=== PATIENT | female | born 1965 | race Caucasian/White ===

== ENCOUNTER 2017-11-09 15:58 | Observation (INO) | payer OTHER ==
--- NOTE | 2017-11-09 16:42 | RAD REPORT ---
EXAM DESCRIPTION: RAD - Elbow Right 3 View - 11/09/2017 4:36 pm CLINICAL HISTORY: Right elbow pain status post fall FINDINGS: No fracture or dislocation is seen
--- NOTE | 2017-11-09 16:44 | RAD REPORT ---
EXAM DESCRIPTION: Steven Single View11/09/2017 4:38 pm CLINICAL HISTORY: Chest pain COMPARISON: 2014 FINDINGS: The lungs appear clear of acute infiltrate. The heart is normal size IMPRESSION: No acute abnormalities displayed
--- NOTE | 2017-11-09 16:45 | RAD REPORT ---
EXAM DESCRIPTION: RAD - Ankle Right 3 View - 11/09/2017 4:36 pm CLINICAL HISTORY: Right ankle pain status post fall FINDINGS: No fracture or dislocation is seen.
[2017-11-09 16:48] LABS: Absolute Lymphocytes (CBC) 1.5 K/uL (0.7-4.9); Absolute Monocytes 0.6 K/uL (0.1-1.3); Absolute Neutrophil 2.9 K/uL (1.8-8.0); Basophils % 0.6 % (0-1.3); Eosinophils % 2.5 % (0-4.4); Hematocrit 34.2 % (36.0-45.0); Lymphocytes % 28.6 % (15.3-44.8); MPV 8.2 fL (7.6-11.3); RBC Red Blood Cell Count 3.64 M/uL (3.86-4.86)
--- NOTE | 2017-11-09 16:48 | RAD REPORT ---
EXAM DESCRIPTION: RAD - Foot Right 3 View - 11/09/2017 4:36 pm CLINICAL HISTORY: Right foot pain status post injury FINDINGS: No fracture or dislocation is seen
[2017-11-09 16:54] LABS: Protime INR 3.3
[2017-11-09 17:11] LABS: ALT/SGPT 20 U/L (12-78); AST/SGOT 14 U/L (15-37); Albumin 3.7 g/dL (3.4-5.0); Alkaline Phosphatase 49 U/L (45-117); BUN Blood Urea Nitrogen 14 mg/dL (7-18); Bicarbonate 29 mmol/L (21-32); Bilirubin Direct 0.1 mg/dL (0-0.2); Bilirubin Total 0.2 mg/dL (0.2-1.0); CKMB Creatine Kinase MB < 1.0 ng/mL (0.3-3.6); Creatine Phosphokinase 92 U/L (26-192); Glucose Level 113 mg/dL (74-106); NT PRO-BNP 199 pg/mL (<125); Potassium 3.8 mmol/L (3.5-5.1); Protein, Total 7.3 g/dL (6.4-8.2); Sodium Level 143 mmol/L (136-145); Troponin (Emerg Dept Use Only) < 0.02 ng/mL (0.0-0.045)
--- NOTE | 2017-11-09 17:12 | RAD REPORT ---
EXAM DESCRIPTION: CT - Head C Spine Mpr Wo Con - 11/09/2017 4:54 pm CLINICAL HISTORY: Head and neck injury status post fall. Head and neck pain syncope COMPARISON: None. TECHNIQUE: Computed axial tomography of the head and cervical spine was obtained. Sagittal and coronal reconstruction was performed. All CT scans are performed using dose optimization technique as appropriate and may include automated exposure control or mA/KV adjustment according to patient size. FINDINGS: An intracranial bleed is not seen. The ventricles are normal in caliber. An extra-axial fl uid collection is not noted.Fluid within the visualized sinuses and mastoids is not seen A cervical fracture is not visualized. No dislocation is noted. 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 A cervical fracture is not visualized. If the patient continues to have symptoms to suggest intracra nial /spinal cord pathology then MRI would be recommended
--- NOTE | 2017-11-09 18:07 | ER ---
Nurse's Notes [facility] Name: Karen Red Age: 52 yrs Sex: Female : 1965 Arrival Date: 11/09/2017 Time: 16:01 Bed 30 Private MD: Emile Pan V Diagnosis: Syncope and collapse;Contusion of right elbow;Pain in right foot Presentation: 11/09 16:15 Presenting complaint: Patient states: " I woke up in the middle of the night feeling ph like I was going to throw up and went to the restroom. I must of passed out because I woke up on the floor." C/O pain to R elbow and foot, denies head pain but is unsure if she hit her head, reports that she takes Warfarin and aspirin. Transition of care: patient was not received from another setting of care. Onset of symptoms was November 09, 2017. Risk Assessment: Do you want to hurt yourself or someone else? Patient reports no desire to harm self or others. Initial Sepsis Screen: Does the patient meet any 2 criteria? No. Patient's initial sepsis screen is negative. Does the patient have a suspected source of infection? No. Patient's initial sepsis screen is negative. Care prior to arrival: None. 16:15 Method Of Arrival: Ambulatory ph 16:15 Acuity: NINO 3 ph Triage Assessment: 16:23 Neuro: Reports a syncopal episode. 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 - Social history:: Smoking status: Patient/guardian denies using tobacco. - Ebola Screening: : Patient negative for fever greater than or equal to 101.5 degrees Fahrenheit, and additional compatible Ebola Virus Disease symptoms Patient denies exposure to infectious person Patient denies travel to an Ebola-affected area in the 21 days before illness onset. Screenin:23 Abuse screen: Denies threats or abuse. Denies injuries from another. Nutritional rv screening: No deficits noted. Tuberculosis screening: No symptoms or risk factors identified. Fall Risk None identified. Assessment: 16:21 General: Appears in no apparent distress. comfortable, Behavior is calm, cooperative. rv Pain: Complains of pain in right ELBOW. Neuro: Level of Consciousness is awake, alert, obeys commands, Oriented to person, place, time, situation. Cardiovascular: Capillary refill < 3 seconds Rhythm is regular. Respiratory: Airway is patent. GI: No signs and/or symptoms were reported involving the gastrointestinal system. : No signs and/or symptoms were reported regarding the genitourinary system. EENT: No signs and/or symptoms were reported regarding the EENT system. Derm: Skin is intact. Musculoskeletal: Reports pain in RIGHT ELBOW, RIGHT FOOT. 16:52 Reassessment: Patient appears in no apparent distress at this time. Patient and/or rv family updated on plan of care and expected duration. Pain level reassessed. Patient is alert, oriented x 3, equal unlabored respirations, skin warm/dry/pink. 17:56 Reassessment: Patient appears in no apparent distress at this time. Patient and/or rv family updated on plan of care and expected duration. Pain level reassessed. Patient is alert, oriented x 3, equal unlabored respirations, skin warm/dry/pink. 18:54 Reassessment: Patient appears in no apparent distress at this time. Patient and/or rv family updated on plan of care and expected duration. Pain level reassessed. Patient is alert, oriented x 3, equal unlabored respirations, skin warm/dry/pink. Vital Signs: 16:18 BP 111 / 61; Pulse 76; Resp 18; Temp 97.8; Pulse Ox 100% on R/A; Weight 52.16 kg; ph Height 5 ft. 6 in. (167.64 cm); Pain 6/10; 16:24 BP 111 / 61; Pulse 80; Pulse Ox 100% on R/A; rv 16:45 BP 97 / 65; Pulse 65; Pulse Ox 100% on R/A; rv 17:08 BP 103 / 60 LA Supine (auto/reg); Pulse 63; Pulse Ox 100% on R/A; jp3 17:10 BP 107 / 65 LA Sitting (auto/reg); Pulse 90; Pulse Ox 95% on R/A; jp3 17:10 BP 101 / 68 LA Standing (auto/reg); Pulse 74; Pulse Ox 100% on R/A; jp3 17:55 BP 109 / 59; Pulse 64; Pulse Ox 100% on R/A; rv 18:53 BP 107 / 69; Pulse 62; Pulse Ox 99% on R/A; rv 19:32 BP 103 / 74; Pulse 72; Pulse Ox 100% on R/A; rv 16:18 Body Mass Index 18.56 (52.16 kg, 167.64 cm) ph ED Course: 16:01 Patient arrived in ED. sb2 16:01 Emile Pan MD is Private Physician. sb2 16:18 Triage completed. ph 16:19 Lucila Gaming FNP-C is PHCP. kb 16:19 Dylon Booth MD is Attending Physician. kb 16:19 PHCP role handed off by Lucila Gaming FNP-C cp 16:19 Jordan Farr PA is PHCP. cp 16:19 Arm band placed on. ph 16:24 Patient has correct armband on for positive identification. Bed in low position. Call rv light in reach. Side rails up X 1. Pulse ox on. NIBP on. 16:26 Inserted saline lock: 20 gauge in right antecubital area, using aseptic technique. rv Blood collected. 16:36 XRAY Chest (1 view) In Process Unspecified. EDMS 16:36 XRAY Elbow RIGHT 3 view In Process Unspecified. EDMS 16:36 XRAY Ankle RIGHT 3 view In Process Unspecified. EDMS 16:36 XRAY Foot RIGHT 3 View In Process Unspecified. EDMS 16:36 X-ray completed. Portable x-ray completed in exam room. Patient tolerated procedure bb2 well. 16:55 CT Head C Spine In Process Unspecified. EDMS 18:05 3D boot applied to right foot. jp3 18:06 Emile Pan MD is Hospitalizing Provider. cp 19:33 No provider procedures requiring assistance completed. Patient admitted, IV remains in rv place. intact. Administered Medications: 18:14 Drug: NS 0.9% 1000 ml Route: IV; Rate: 1 bolus; Site: left antecubital; rv 18:54 Follow up: IV Status: Completed infusion rv 18:30 Drug: HYDROcodone-acetaminophen 5 mg-325 mg 1 tabs Route: PO; rv 18:54 Follow up: Response: No adverse reaction rv Outcome: 18:07 Decision to Hospitalize by Provider. cp 19:33 Admitted to Med/surg accompanied by tech, via wheelchair, room 205, with chart, Report rv called to NARESH 19:33 Condition: good 19:33 Instructed on the need for admit. 19:34 Patient left the ED. rv Signatures: Dispatcher [employer] EDMS Lucila Gaming, JUKEBOX ROUTEMAN-C JUKEBOX ROUTEMAN-Nicole Rodriguez, RN RN ph Jordan Farr, SUZANNE PA cp Amena Jones bb2 Anabelle Samuels sb2 Joshua James RN RN rv Jason Clayton jp3 Corrections: (The following items were deleted from the chart) 16:18 16:15 Acuity: NINO 4 ph ph
--- NOTE | 2017-11-09 18:08 | EDPHYS ---
Physician Documentation [facility] Name: Karen Red Age: 52 yrs Sex: Female : 1965 Arrival Date: 11/09/2017 Time: 16:01 Bed 30 Private MD: Emile Pan V ED Physician Dylon Booth HPI: 11/09 16:27 This 52 yrs old Female presents to ER via Ambulatory with complaints of cp Syncope, Fall Injury. 16:27 The patient has experienced syncope, collapsed. cp 16:27 Onset: The symptoms/episode began/occurred this morning. cp 16:27 Associated injury: Right lower extremity: dorsum of right foot, pain, swelling, cp tenderness, Right upper extremity: right elbow, contusion, swelling, tenderness. 16:27 Duration: This was a single episode, that lasted an unknown period of time. Current cp symptoms: Currently, the patient is not experiencing any symptoms, no decreased level of consciousness, no headache. 16:30 Patient reports waking up to use restroom and while walking to bathroom she believes cp she passed out for unknown length of time. Patient reports waking up on floor near bathroom. 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 - Social history:: Smoking status: Patient/guardian denies using tobacco. - Ebola Screening: : Patient negative for fever greater than or equal to 101.5 degrees Fahrenheit, and additional compatible Ebola Virus Disease symptoms Patient denies exposure to infectious person Patient denies travel to an Ebola-affected area in the 21 days before illness onset. ROS: 16:30 Constitutional: Negative for body aches, chills, fever, poor PO intake. cp 16:30 Eyes: Negative for injury, pain, redness, and discharge. cp 16:30 ENT: Negative for drainage from ear(s), ear pain, sore throat, difficulty swallowing, difficulty handling secretions. 16:30 Neck: Negative for pain with movement, pain at rest, stiffness, tenderness. 16:30 Cardiovascular: Negative for chest pain, edema, palpitations. 16:30 Respiratory: Negative for cough, shortness of breath, wheezing. 16:30 Abdomen/GI: Negative for abdominal pain, vomiting, diarrhea, constipation, black/tarry stool, rectal bleeding. 16:30 Back: Negative for pain at rest, pain with movement. 16:30 MS/extremity: Positive for pain, swelling, tenderness, of the right foot and right elbow, Negative for paresthesias. 16:30 Skin: Negative for cellulitis, diaphoresis, rash. 16:30 Neuro: Positive for syncope, Negative for altered mental status, dizziness, headache, numbness, weakness. Exam: 16:35 Constitutional: The patient appears in no acute distress, alert, awake, cp non-diaphoretic, non-toxic, well developed, well nourished. 16:35 Head/Face: Normocephalic, atraumatic. Eyes: Pupils equal round and reactive to light, cp extra-ocular motions intact. Lids and lashes normal. Conjunctiva and sclera are non-icteric and not injected. Cornea within normal limits. Periorbital areas with no swelling, redness, or edema. ENT: Nares patent. No nasal discharge, no septal abnormalities noted. Tympanic membranes are normal and external auditory canals are clear. Oropharynx with no redness, swelling, or masses, exudates, or evidence of obstruction, uvula midline. Mucous membranes moist. Neck: Trachea midline, no thyromegaly or masses palpated, and no cervical lymphadenopathy. Supple, full range of motion without nuchal rigidity, or vertebral point tenderness. No Meningismus. Chest/axilla: Normal chest wall appearance and motion. Nontender with no deformity. No lesions are appreciated. 16:35 Cardiovascular: Rate: normal, Rhythm: regular, Pulses: Pulses are 2+ in right radial artery and left radial artery. Edema: is not appreciated, JVD: is not appreciated. 16:35 Respiratory: the patient does not display signs of respiratory distress, Respirations: normal, no use of accessory muscles, no retractions, no splinting, no tachypnea, labored breathing, is not present, Breath sounds: are clear throughout, no decreased breath sounds, no stridor, no wheezing. 16:35 Abdomen/GI: Inspection: abdomen appears normal, Bowel sounds: active, all quadrants, Palpation: abdomen is soft and non-tender, in all quadrants, rebound tenderness, is not appreciated, voluntary guarding, is not appreciated, involuntary guarding, is not appreciated. 16:35 Back: pain, is absent, ROM is normal. 16:35 Musculoskeletal/extremity: Extremities: grossly normal except: noted in the right elbow: contusion, ecchymosis, swelling, tenderness, There is no evidence of deformity, noted in the right foot: pain, swelling, tenderness, no evidence of deformity. 16:35 Skin: cellulitis, is not appreciated, no rash present. 16:35 Neuro: Orientation: to person, place \T\ time. Mentation: lucid, able to follow commands, Cerebellar function: Romberg testing is negative, normal finger to nose testing, Motor: moves all fours, strength is normal, Sensation: no obvious gross deficits. 16:55 ECG was reviewed by the Attending Physician. cp Vital Signs: 16:18 BP 111 / 61; Pulse 76; Resp 18; Temp 97.8; Pulse Ox 100% on R/A; Weight 52.16 kg; ph Height 5 ft. 6 in. (167.64 cm); Pain 6/10; 16:24 BP 111 / 61; Pulse 80; Pulse Ox 100% on R/A; rv 16:45 BP 97 / 65; Pulse 65; Pulse Ox 100% on R/A; rv 17:08 BP 103 / 60 LA Supine (auto/reg); Pulse 63; Pulse Ox 100% on R/A; jp3 17:10 BP 107 / 65 LA Sitting (auto/reg); Pulse 90; Pulse Ox 95% on R/A; jp3 17:10 BP 101 / 68 LA Standing (auto/reg); Pulse 74; Pulse Ox 100% on R/A; jp3 17:55 BP 109 / 59; Pulse 64; Pulse Ox 100% on R/A; rv 18:53 BP 107 / 69; Pulse 62; Pulse Ox 99% on R/A; rv 19:32 BP 103 / 74; Pulse 72; Pulse Ox 100% on R/A; rv 16:18 Body Mass Index 18.56 (52.16 kg, 167.64 cm) ph MDM: 16:19 Patient medically screened. kb 17:00 Differential Diagnosis: cardiac arrhythmia, cerebrovascular accident, drug effect, GI cp bleed, idiopathic syncope, seizure, transient ischemic attack, vasovagal episode. 18:10 Data reviewed: vital signs, nurses notes, lab test result(s), EKG, radiologic studies, cp plain films. 18:10 Test interpretation: by ED physician or midlevel provider: ECG, plain radiologic cp studies. Counseling: I had a detailed discussion with the patient and/or guardian regarding: the historical points, exam findings, and any diagnostic results supporting the discharge/admit diagnosis, lab results, radiology results, the need for outpatient follow up. Physician consultation: Emile Pan MD was called at 17:55, was contacted at 17:55, regarding admission, to the telemetry unit. patient's condition. 11/09 16:27 Order name: Basic Metabolic Panel; Complete Time: 17:19 cp 11/09 17:19 Interpretation: Normal except: CL 110; GLUC 113. cp 11/09 16:27 Order name: CBC with Diff; Complete Time: 16:54 cp 11/09 16:54 Interpretation: Normal except: RBC 3.64; HGB 11.7; HCT 34.2. cp 11/09 16:27 Order name: Ckmb; Complete Time: 17:19 cp 11/09 16:27 Order name: CPK; Complete Time: 17:19 cp 11/09 16:27 Order name: LFT's; Complete Time: 17:19 cp 11/09 16:27 Order name: Magnesium; Complete Time: 17:19 cp 11/09 16:27 Order name: NT PRO-BNP; Complete Time: 17:19 cp 11/09 17:19 Interpretation: Abnormal: NT PRO-BNP 199. cp 11/09 16:27 Order name: PT-INR; Complete Time: 17:06 cp 11/09 16:27 Order name: Ptt, Activated; Complete Time: 17:06 cp 11/09 16:27 Order name: Troponin (emerg Dept Use Only); Complete Time: 17:19 cp 11/09 18:29 Order name: Basic Metabolic Panel EDMS 11/09 18:29 Order name: Basic Metabolic Panel EDMS 11/09 18:29 Order name: CBC with Automated Diff EDMS 11/09 18:29 Order name: CBC with Automated Diff EDGA 11/09 16:27 Order name: CT Head C Spine; Complete Time: 17:19 cp 11/09 16:27 Order name: XRAY Chest (1 view); Complete Time: 16:54 cp 11/09 16:27 Order name: EKG; Complete Time: 16:28 cp 11/09 16:27 Order name: XRAY Elbow RIGHT 3 view; Complete Time: 16:54 cp 11/09 16:27 Order name: XRAY Ankle RIGHT 3 view; Complete Time: 16:54 cp 11/09 16:27 Order name: XRAY Foot RIGHT 3 View; Complete Time: 16:54 cp 11/09 18:29 Order name: Regular EDMS 11/09 18:29 Order name: Echo with Doppler EDMS 11/09 18:29 Order name: EKG Electrocardiogram EDMS 11/09 18:29 Order name: Stroke Protocol EDMS 11/09 18:29 Order name: Carotid Artery Bilateral EDMS 11/09 18:30 Order name: Protime (+INR) EDMS 11/09 18:30 Order name: PTT, Activated Partial Thromb EDMS 11/09 16:27 Order name: Cardiac monitoring; Complete Time: 16:27 cp 11/09 16:27 Order name: EKG - Nurse/Tech; Complete Time: 16:51 cp 11/09 16:27 Order name: IV Saline Lock; Complete Time: 16:28 cp 11/09 16:27 Order name: Labs collected and sent; Complete Time: 16:28 cp 11/09 16:27 Order name: O2 Per Protocol; Complete Time: 16:28 cp 11/09 16:27 Order name: O2 Sat Monitoring; Complete Time: 16:28 cp 11/09 17:06 Order name: Orthostatics; Complete Time: 17:19 cp 11/09 17:51 Order name: Walking boot; Complete Time: 17:53 cp 11/09 18:29 Order name: EKG Electrocardiogram EDMS EC:55 Rate is 64 beats/min. QRS [place] is Normal. IA interval is normal. QRS interval is cp normal. QT interval is normal. No ST changes noted. Interpreted by me. Reviewed by me. Administered Medications: 18:14 Drug: NS 0.9% 1000 ml Route: IV; Rate: 1 bolus; Site: left antecubital; rv 18:54 Follow up: IV Status: Completed infusion rv 18:30 Drug: HYDROcodone-acetaminophen 5 mg-325 mg 1 tabs Route: PO; rv 18:54 Follow up: Response: No adverse reaction rv Disposition: 11/09/17 18:07 Hospitalization ordered by Emile Pan for Observation. Preliminary diagnosis are Syncope and collapse, Contusion of right elbow, Pain in right foot. - Bed requested for Telemetry/MedSurg (observation). - Status is Observation. rv - Condition is Stable. - Problem is new. - Symptoms have improved. UTI on Admission? No Addendum: 11/14/2017 07:03 Co-signature as Attending Physician, Dylon Booth MD. r n Signatures: Dispatcher [employer] EDGA Lucila Gaming, TEST AUTOMATION ARCHITECT-C TEST AUTOMATION ARCHITECT-Ckb Dylon Booth MD MD rn Nicole Merritt RN RN Jordan Elaine PA PA cp Botello, Elizabeth eb Vicente, Ronaldo RN RN rv Corrections: (The following items were deleted from the chart) 11/09 18:23 18:04 MR STROKE PROTOCOL+MRI.RAD.BRZ ordered. [facility] EDGA 18:43 18:07 Hospitalization Ordered by Emile Pan MD for Observation. Preliminary diagnosis eb is Syncope and collapse. Bed requested for Telemetry/MedSurg (observation). Status is Observation. Condition is Stable. Problem is new. Symptoms have improved. UTI on Admission? No. cp 19:00 18:43 11/09/2017 18:07 Hospitalization Ordered by Emile Pan MD for Observation. cp Preliminary diagnosis is Syncope and collapse. Bed requested for Telemetry/MedSurg (observation). Status is Observation. Condition is Stable. Problem is new. Symptoms have improved. UTI on Admission? No. eb 19:34 19:00 11/09/2017 18:07 Hospitalization Ordered by Emile Pan MD for Observation. rv Preliminary diagnosis is Syncope and collapse; Contusion of right elbow; Pain in right foot. Bed requested for Telemetry/MedSurg (observation). Status is Observation. Condition is Stable. Problem is new. Symptoms have improved. UTI on Admission? No. cp
[2017-11-09] MEDS ORDERED: NA CHLORIDE 0.9% 1,000 ML ONE (18:17)
[2017-11-09] MEDS ORDERED: HYDROCODONE/APAP 5/325 MG TAB ONE (18:33)
[2017-11-09] MEDS ORDERED: SODIUM CHLORIDE 0.9% 10ML INJ IV PRN (19:32)
--- NOTE | 2017-11-09 20:31 | RAD REPORT ---
EXAM DESCRIPTION: US - CP - 11/09/2017 7:27 pm CLINICAL HISTORY: syncope and collapse COMPARISON: Head C Spine Mpr Wo Con dated 11/09/2017 TECHNIQUE: Real-time sonographic evaluation of both carotid systems was performed. Doppler interroga tion was performed with waveform tracing bilaterally. FINDINGS: Normal high resistance waveforms are noted in both external carotid arteries. The common c arotid arteries and internal carotid arteries show normal low resistance waveforms. No significant plaque formation is seen. Peak systolic and end diastolic velocity values and the ICA/ CCA ratios are in the non-hemodynamically significant range. Antegrade flow seen in both vertebral arteries. IMPRESSION: No significant atherosclerotic changes noted. No evidence of a hemodynamically significant stenosis.
--- NOTE | 2017-11-09 20:54 | RAD REPORT ---
EXAM DESCRIPTION: MRI - Brain W/Wo Cont - 11/09/2017 8:34 pm CLINICAL HISTORY: SYNCOPE Seizure COMPARISON: MRA Head Wo Cont dated 11/09/2017; Head C Spine Mpr Wo Con dated 11/09/2017; HEAD BRAIN W O CONTRAST dated 03/12/2014; MRI BRAIN W WO CONTRAST dated 03/12/2014 TECHNIQUE: Multi-sequence, multiplanar MR imaging of the brain was performed with contrast. FINDINGS: No intracranial hemorrhage, hydrocephalus, extra-axial fluid collection or acute infarctio n. No edema or shift of midline structures. No intracranial mass. DWI is negative for acute CVA. The midline structures are normally formed. Mastoid air cells and paranasal sinuses are clear. Post-contrast images show no abnormal enhancement to suggest tumor or infection. IMPRESSION: No acute or concerning intracranial abnormalities. No pathologic post-contrast enhancement suspected.
--- NOTE | 2017-11-09 20:57 | RAD REPORT ---
EXAM DESCRIPTION: MRI - MRA Head Wo Cont - 11/09/2017 8:34 pm CLINICAL HISTORY: syncope and collapse CVA COMPARISON: HEAD BRAIN W O CONTRAST dated 03/12/2014 FINDINGS: 3D noncontrast [id number] MR angiography of the [place] was performed. No aneurysm, flow-limiting stenosis or vascular malformation is seen. Forward flow seen in codominant vertebral arteries. The visualized dural venous sinuses appear patent. IMPRESSION: No significant flow abnormality of the [place] is identified.
--- NOTE | 2017-11-09 21:02 | RAD REPORT ---
EXAM DESCRIPTION: MRI - MRA Neck W/Wo Cont - 11/09/2017 8:34 pm CLINICAL HISTORY: SYNCOPE COMPARISON: Carotid Artery Bilateral dated 11/09/2017; MRI BRAIN W WO CONTRAST dated 03/12/2014 FINDINGS: Contrast enhance 2D [id number] MR angiography of the neck vessels was performed. Mild post bulbar narrowing is seen involving the left internal carotid artery. No significant stenosi s is seen on either side. Antegrade flow seen in both vertebral arteries. IMPRESSION: No significant carotid stenosis is identified
--- NOTE | 2017-11-09 21:09 | RAD REPORT ---
EXAM DESCRIPTION: US - Abdomen Exam Complete - 11/09/2017 9:00 pm CLINICAL HISTORY: Abdominal pain. PAIN IN ABDOMEN COMPARISON: ABDOMINAL EXAM COMPLETE dated 04/10/2014 FINDINGS: The liver is normal in size, shape and echotexture. No focal liver lesions or intrahepatic biliary dilatation is seen. The gallbladder demonstrates no gallstones, pericholecystic fluid or gallbladder wall thickening. Co mmon bile duct is normal in caliber measuring 4 mm. Both kidneys are normal in size, shape and echotexture. Mild left hydronephrosis is noted. The spleen is normal in size measuring 8 centimeters. The pancreas and aorta are obscured by bowel gas. The visualized aspects of the IVC are grossly normal. IMPRESSION: Mild left hydronephrosis.
[2017-11-09 21:49] LABS: Protime INR 3.13
[2017-11-09 23:02] VITALS: BMI 18.6
[2017-11-10] MEDS: ACETAMINOPHEN 500 MG TAB PO PRN ×2 (05:10→11:29)
[2017-11-10] MEDS ORDERED: PANTOPRAZOLE 40 MG INJ IVP SCH (09:00)
[2017-11-10 09:56] LABS: Absolute Lymphocytes (CBC) 1.3 K/uL (0.7-4.9); Absolute Monocytes 0.5 K/uL (0.1-1.3); Absolute Neutrophil 1.7 K/uL (1.8-8.0); Basophils % 0.6 % (0-1.3); Eosinophils % 4.3 % (0-4.4); Hematocrit 31.6 % (36.0-45.0); Lymphocytes % 35.4 % (15.3-44.8); MCH 32.2 pg (27.0-35.0); MCV 93.2 fL (80-100); MPV 8.5 fL (7.6-11.3); Monocytes % 12.9 % (3.3-12.3); RBC Red Blood Cell Count 3.39 M/uL (3.86-4.86)
[2017-11-10 10:33] VITALS: O2SAT 98
--- NOTE | 2017-11-10 10:43 | HP ---
Date of Admission: 11/09/2017 Chief Complaint: Syncope and fall at home. 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 I barely oversee her in office. She comes to me only when she needs some local help, otherwise, she is not my primary patient. She had felt di zzy, nauseous after abdominal pain and passed out at home, injured right elbow and right foot, now se en in the emergency room. Past Medical History: CVA and pulmonary embolism as described above. Medications: Warfarin, she takes 5 mg a day and on Monday, she takes 2.5 mg. Her checkup is done by [facility] and hard of [facility] teacher in [place] for maintenance of warfarin. Past Surgical History: No major surgeries in the past. Physical Examination: The patient is comfortable, lying in the bed. Has no acute complaints at this point. She is not diz zy or nauseous anymore. She had a right elbow dressing done for the elbow injury and swelling and ri ght ankle and foot are in support at this point. Chest: Clear. Heart: Regular. Abdomen: No guarding, rebound, or rigidity. She has some tenderness in the epigastric region and pe riumbilical region, but minimal in right upper quadrant. Neurological: There are no focal deficits. Power 5/5 bilaterally. Cranial nerves normal. Alert an d oriented x3. Sensory exam, no deficits. Laboratory Data: On lab examination, patient's white count is 5.2, hemoglobin 11.7. INR is 2.3, sli ghtly high. Chem 7 showed glucose of 113, otherwise, unremarkable. Troponins normal. Investigations: Her CT scan of brain and cervical spine show no signs of stroke or hemorrhage and el bow x-ray, chest x-ray, and ankle x-ray are unremarkable. Assessment/plan: The patient with syncope, dizziness, nausea after abdominal pain. This could be a vasovagal syncope. Most likely, unrelated to stroke. We will do an MRI stroke protocol tomorrow. S he will be discharged home tomorrow once she is ruled out to have a stroke. She is followed by [facility] ologist in [place]. For her abdominal pain, I will order an ultrasound of abdomen. I will put her o n Protonix IV and later on, she will need endoscopy which I have explained to her in few days to come to office so we can arrange for all that or her doctors in [place]. Her prognosis is fair. NATALYA/GANESH Voice ID: [id number]
[2017-11-10 10:48] LABS: Protime INR 2.98
[2017-11-10 11:19] LABS: BUN Blood Urea Nitrogen 11 mg/dL (7-18); Bicarbonate 28 mmol/L (21-32); Glucose Level 85 mg/dL (74-106); Potassium 3.7 mmol/L (3.5-5.1); Sodium Level 146 mmol/L (136-145)
[2017-11-10 17:53] VITALS: BP 112/68; TEMP 98.1
--- NOTE | 2017-11-11 06:19 | DS ---
Date of Discharge: 11/10/2017 History Of Present Illness: A 52-year-old female who was admitted to the hospital by Dr. Pan, her primary care physician, because of symptom of dizziness, syncope in the form of fainting, along with nausea and abdominal pain, no specific site. Past Medical History: As per admit note. Social History: As per admit note. Family History: As per admit note. Medications: As per admit note. Allergies: PER ADMIT NOTE. Physical Examination: Vital Signs: The patient's blood pressure is 125/60, pulse 70, temperature 98.5. Heart: Regular rate and rhythm. Chest: Clear to auscultation. Abdomen: Soft, nontender. No rigidity. No rebound. Bowel sounds are normoactive. Extremities: No edema. No cyanosis. Peripheral pulses are felt. Neurological Examination: Alert, oriented, nonfocal. Grossly intact. Hospital Course: The patient was admitted to the hospital by Dr. Pan for observation. While she i s in the hospital, she had no more nausea, no vomiting, and she had no abdominal pain. She was put o n Protonix thinking that also her abdominal pain could be coming from gastritis. At the same time, t he patient had workup with abdominal ultrasound which basically was negative. She had also brain MRA and MRI which showed no stroke, and bilateral carotid ultrasound showed no significant pathology or narrowing. With this workup, I Think the patient is stable enough to be discharged to follow up with Dr. Pan next week. Look orders for det ails. MFS/MODL Voice ID: [id number] Report ID: [id number]
--- NOTE | 2017-11-11 12:12 | EKG ---
Test Date: 2017-11-10 Test Time: 12:58:56 Shaker Screen Operator: MIRANDA MEASUREMENT RESULTS: Intervals: Rate: 59 WY: 162 QRSD: 82 QT: 408 QTc: 403 [place]: P: 61 WY: 162 QRS: 65 T: 45 INTERPRETIVE STATEMENTS: Sinus bradycardia Otherwise normal ECG Compared to ECG 11/09/2017 16:45:21 Sinus rhythm no longer present Electronically Signed On 11-11-17 12:07:51 CDT by Ovidio Martinez
--- NOTE | 2017-11-11 12:17 | EKG ---
Test Date: 2017-11-09 Test Time: 16:45:21 Bricklayer: MEASUREMENT RESULTS: Intervals: Rate: 64 LA: 160 QRSD: 86 QT: 400 QTc: 412 [place]: P: 75 LA: 160 QRS: 70 T: 77 INTERPRETIVE STATEMENTS: Normal sinus rhythm Normal ECG Compared to ECG 03/13/2014 07:41:59 No significant changes Electronically Signed On 11-11-17 12:08:37 CDT by Ovidio Martinez
--- NOTE | 2017-11-13 07:42 | ECHO ---
HEIGHT: 5 ft 6 in WEIGHT: 115 lb 0 oz DATE OF STUDY: 11/10/[address]: Jordan Farr PAC 2-DIMENSIONAL: YES M.MODE: YES DOPPLER: YES COLOR FLOW: YES TDS: PORTABLE: DEFINITY: BUBBLE STUDY: DIAGNOSIS: SYNCOPE CARDIAC HISTORY: CATHERIZATION: YES SURGERY: PROSTHETIC VALVE: PACEMAKER: MEASUREMENTS (cm) DIASTOLIC (NORMALS) SYSTOLIC (NORMALS) IVSd 0.7 (0.6-1.2) LA Diam 3.1 (1.9-4.0) LVEF 74% LVIDd 4.6 (3.5-5.7) LVIDs 2.7 (2.0-3.5) %FS 43% LVPWd 0.8 (0.6-1.2) Ao Diam 2.9 (2.0-3.7) 2 DIMENSIONAL ASSESSMENT: RIGHT ATRIUM: NORMAL LEFT ATRIUM: NORMAL RIGHT VENTRICLE: NORMAL LEFT VENTRICLE: NORMAL TRICUSPID VALVE: NORMAL MITRAL VALVE: NORMAL PULMONIC VALVE: NORMAL AORTIC VALVE: NORMAL PERICARDIAL EFFUSION: NONE AORTIC ROOT: NORMAL LEFT VENTRICULAR WALL MOTION: NORMAL DOPPLER/COLOR FLOW: TRACE TRICUSPID REGURGITATION. COMMENTS: TRACE TRICUSPID REGURGITATION OTHERWISE NORMAL ECHOCARDIOGRAM. NO WALL MOTION ABNORMALITY. NO EFFUSION. TECHNOLOGIST: LUIS ALLISON
== END 2017-11-10 17:31 | disposition home or self-care (01) ==
LOC: ER 15:58 → ERHOLD 18:18 → 2ND 19:17
PROVIDERS: ADMIT Internal Medicine; ATTEND Internal Medicine
DX: R42 Dizziness and giddiness (principal); R55 Syncope and collapse; R11.0 Nausea; S50.01XA Contusion of right elbow, initial encounter; R10.9 Unspecified abdominal pain; Z86.73 Personal history of transient ischemic attack (TIA), and cerebral infarction without residual deficits; Z86.711 Personal history of pulmonary embolism; Z79.01 Long term (current) use of anticoagulants; W18.39XA Other fall on same level, initial encounter; Y92.009 Unspecified place in unspecified non-institutional (private) residence as the place of occurrence of the external cause
CPT/HCPCS: 36415; 70450; 70544; 70549; 70553; 71045; 72125; 76700; 80048; 80076; 82550; 82553; 83735; 83880; 84484; 85025; 85610; 85730; 93005; 93306; 93880; 96360; 99285; A9577; C9113; G0378; J7030

== ENCOUNTER 2020-03-17 20:57 | Emergency (ER) | payer BC, OTHER ==
--- NOTE | 2020-03-17 21:44 | ER ---
Nurse's Notes [facility] Name: Karen Red Age: 54 yrs Sex: Female : 1965 Arrival Date: 03/17/2020 Time: 21:39 Bed Waiting Private MD: Diagnosis: Presentation: 03/17 21:39 Chief complaint: Patient states: Covid s/s started Monday. tested Covid+ yesterday. ca1 Reports back pain since today. Has doctor's appointment tomorrow. Pt states, "how bout we check my oxygen, if it's okay I will just wait for my appointment with Dr. Pan or I can just come back tomorrow smutter for an Xray". After taking VS,, "I will just wait for tomorrow and just go home for now instead of waiting in the lobby" Pt did not want to finish triage. Coronavirus screen: Client reports previous positive COVID test result. Date of collection: March 16, 2020. Onset of symptoms was March 17, 2020. 21:39 Method Of Arrival: Ambulatory ca1 21:39 Acuity: NINO 4 ca1 Vital Signs: 21:39 BP 120 / 81; Pulse 83; Resp 16 S; Temp 97.1; Pulse Ox 100% on R/A; ca1 ED Course: 21:39 Patient arrived in ED. ca1 21:43 Triage completed. ca1 Administered Medications: No medications were administered Outcome: 21:43 Patient left the ED. ca1 Signatures: Isabel Mccurdy RN RN ca1
[2020-03-17 21:48] VITALS: BP 120/81; TEMP 97.1; O2SAT 100
== END 2020-03-17 21:43 | disposition left against medical advice (07) ==
LOC: ER 20:57
DX: Z02.9 Encounter for administrative examinations, unspecified (principal)
CPT/HCPCS: 99281

== ENCOUNTER 2021-09-30 06:56 | Day surgery (SDC) | payer BC ==
[2021-09-30 07:28] VITALS: BMI 19.0
[2021-09-30] MEDS ORDERED: SODIUM CHLORIDE 0.9% 10ML INJ IV ONE (08:00)
[2021-09-30] MEDS ORDERED: COSYNTROPIN 0.25 MG VIAL IV ONE (08:00)
[2021-09-30 10:06] VITALS: BP 122/77; TEMP 97; O2SAT 99
== END 2021-09-30 09:35 | disposition home or self-care (01) ==
LOC: DS 06:56
PROVIDERS: ATTEND Internal Medicine
DX: E27.1 Primary adrenocortical insufficiency (principal)
CPT/HCPCS: 36415; 82024; 82533; 96372; J0834